=== PATIENT | male | born 1985 | race Caucasian/White ===

== ENCOUNTER 2017-06-05 20:56 | Inpatient (IN) | payer BC, MEDICAID ==
[~2017-06-05] VITALS: Ht 177.8 cm; Wt 94.0 kg
[~2017-06-05 20:56] MED LIST: CEPH-582 PO; SULF1TAB42 PO
[2017-06-05 23:00] LABS: BASOPHILS % (AUTO) 0.4 % (0.0-2.0); EOSINOPHILS % (AUTO) 4.5 % (1.0-6.0); HEMATOCRIT 41.9 % (41-53); HEMOGLOBIN 14.3 g/dL (13.5-17.5); LYMPHOCYTES # (AUTO) 2.3 K/uL (1.0-4.8); LYMPHOCYTES % (AUTO) 29.3 % (22.0-44.0); MEAN CORPUSCULAR HEMOGLOBIN 30.4 pg (26.0-34.0); MEAN CORPUSCULAR HGB CONC 34.1 G/dL (31.0-37.0); MEAN CORPUSCULAR VOLUME 89 fL (80-100); MONOCYTES # (AUTO) 0.6 K/uL (0.1-1.0); MONOCYTES % (AUTO) 7.8 % (2.0-9.0); NEUTROPHILS # (AUTO) 4.6 K/uL (1.8-7.7); PLATELET COUNT (AUTO) 321 K/uL (150-450); RED CELL DISTRIBUTION WIDTH 13.6 % (11.5-14.5)
[2017-06-05 23:09] LABS: AMPHET/METH SCREEN,URINE NEGATIVE (NEGATIVE); BARBITURATE SCREEN, URINE NEGATIVE (NEGATIVE); BENZODIAZEPINES SCREEN,URINE NEGATIVE (NEGATIVE); CANNABINOID SCREEN,URINE NEGATIVE (NEGATIVE); COCAINE SCREEN,URINE NEGATIVE (NEGATIVE); METHADONE SCREEN, URINE NEGATIVE (NEGATIVE); OPIATE SCREEN,URINE NEGATIVE (NEGATIVE)
[2017-06-05 23:10] LABS: PHENCYCLIDINE SCREEN,URINE NEGATIVE (NEGATIVE)
[2017-06-05 23:11] LABS: ANION GAP 5 mmol/L (8-16); CALCIUM, TOTAL 8.8 mg/dL (8.8-10.5); CARBON DIOXIDE 30 mmol/L (22-29); CHLORIDE 106 mmol/L (98-107); CREATININE 0.72 mg/dL (0.60-1.30); GLOMERULAR FILTR. RATE CALC > 60 mL/min (>60); GLUCOSE,RANDOM 97 mg/dL (70-110); POTASSIUM 3.8 mmol/L (3.5-5.1); SODIUM SERUM 141 mmol/L (136-145); UREA NITROGEN, BLOOD 10 mg/dL (7-18)
[2017-06-05 23:18] LABS: ALANINE AMINOTRANSFERASE 170 U/L (12-78); ALBUMIN 3.5 g/dL (3.4-5.0); ALKALINE PHOSPHATASE 58 U/L (46-116); ASPARTATE AMINOTRANSFERASE 188 U/L (15-37); BILIRUBIN,TOTAL 0.3 mg/dL (0.1-1.0); TOTAL PROTEIN, SERUM 6.9 g/dL (6.4-8.2)
[2017-06-06] MEDS ORDERED: ZOLPIDEM TARTRATE 10 MG TABLET PO PRN (00:15)
[2017-06-06 03:18] LABS: APPEARANCE,URINE CLOUDY (CLEAR); BILIRUBIN,URINE NEGATIVE (NEGATIVE); GLUCOSE, URINE (UA) NEGATIVE (NEGATIVE); KETONES,URINE NEGATIVE (NEGATIVE); LEUKOCYTE ESTERASE ,URINE NEGATIVE (NEGATIVE); NITRATE,URINE NEGATIVE (NEGATIVE); OCCULT BLOOD,URINE NEGATIVE (NEGATIVE); PROTEIN,URINE NEGATIVE (NEGATIVE)
[2017-06-06 11:14] VITALS: BP 112/66
[2017-06-06] MEDS ORDERED: PNEUMOCOCCAL VACCINE POLYVALENT 0.5 ML VIAL [PPSV23] IM ONE (13:15)
[2017-06-06 21:18] VITALS: BP 125/80
[2017-06-07 07:13] LABS: CHOL/HDL RATIO 3.2 (4.2-7.3)
[2017-06-07] MEDS: HALOPERIDOL 5 MG TABLET PO PRN (09:23)
[2017-06-07 13:15] VITALS: BP 111/72
[2017-06-07] MEDS ORDERED: MAG HYDROX/AL HYDROX/SIMETH 30 ML SUSP UDCUP PO PRN (14:30)
[2017-06-07 17:00] VITALS: BP 121/63
[2017-06-07] MEDS: ARIPiprazole 15 MG TABLET PO SCH (20:45)
[2017-06-08 06:38] VITALS: BP 110/64
[2017-06-08 07:15] LABS: ALANINE AMINOTRANSFERASE 117 U/L (12-78); ALBUMIN 3.5 g/dL (3.4-5.0); ALKALINE PHOSPHATASE 48 U/L (46-116); ANION GAP 6 mmol/L (8-16); ASPARTATE AMINOTRANSFERASE 55 U/L (15-37); BILIRUBIN,TOTAL 0.3 mg/dL (0.1-1.0); CALCIUM, TOTAL 9.1 mg/dL (8.8-10.5); CARBON DIOXIDE 33 mmol/L (22-29); CHLORIDE 104 mmol/L (98-107); CREATININE 0.77 mg/dL (0.60-1.30); GLOMERULAR FILTR. RATE CALC > 60 mL/min (>60); GLUCOSE,RANDOM 86 mg/dL (70-110); POTASSIUM 4.2 mmol/L (3.5-5.1); SODIUM SERUM 143 mmol/L (136-145); TOTAL PROTEIN, SERUM 6.8 g/dL (6.4-8.2); UREA NITROGEN, BLOOD 10 mg/dL (7-18)
[2017-06-08] MEDS: LITHIUM CARBONATE 300 MG CAPSULE PO SCH ×2 (08:12→16:01)
[2017-06-08] MEDS: BENZTROPINE MESYLATE 1 MG TABLET PO SCH ×2 (08:12→16:01)
[2017-06-08 08:48] VITALS: BP 108/81
[2017-06-08 09:12] LABS: FOLATE SERUM 14.7 ng/mL (5.4-)
[2017-06-08] MEDS ORDERED: MAGNESIUM HYDROXIDE SUSPENSION 30 ML UDCUP PO PRN (10:45)
[2017-06-08] MEDS: DOCUSATE SODIUM 250 MG CAPSULE PO SCH (16:01)
[2017-06-08] MEDS: HALOPERIDOL 5 MG TABLET PO PRN (17:12)
[2017-06-08 19:27] VITALS: BP 128/71
[2017-06-08] MEDS: ARIPiprazole 15 MG TABLET PO SCH (20:08)
[2017-06-09 04:41] VITALS: BP 148/77
[2017-06-09 08:00] VITALS: BP 123/75
[2017-06-09] MEDS: DOCUSATE SODIUM 250 MG CAPSULE PO SCH ×2 (08:04→17:00)
[2017-06-09] MEDS: LITHIUM CARBONATE 300 MG CAPSULE PO SCH ×2 (08:04→17:00)
[2017-06-09] MEDS: BENZTROPINE MESYLATE 1 MG TABLET PO SCH ×2 (08:04→17:00)
[2017-06-09 17:22] VITALS: BP 98/64
[2017-06-09] MEDS: ARIPiprazole 15 MG TABLET PO SCH (20:03)
[2017-06-09] MEDS: HALOPERIDOL 5 MG TABLET PO PRN (22:53)
[2017-06-09] MEDS: LORazepam 2 MG TABLET PO PRN (22:55)
[2017-06-10 04:38] VITALS: BP 142/74
[2017-06-10] MEDS: BENZTROPINE MESYLATE 1 MG TABLET PO SCH ×2 (08:12→16:07)
[2017-06-10] MEDS: DOCUSATE SODIUM 250 MG CAPSULE PO SCH ×2 (08:12→16:08)
[2017-06-10] MEDS: LITHIUM CARBONATE 300 MG CAPSULE PO SCH ×3 (08:14→16:08)
[2017-06-10] MEDS: NICOTINE 21 MG/24 HOUR PATCH TD SCH (11:33)
[2017-06-10] MEDS: LORazepam 2 MG TABLET PO PRN (12:30)
[2017-06-10 16:36] VITALS: BP 102/67
[2017-06-10] MEDS: ARIPiprazole 15 MG TABLET PO SCH (20:16)
[2017-06-11 06:44] VITALS: BP 106/77
[2017-06-11] MEDS: NICOTINE 21 MG/24 HOUR PATCH TD SCH (08:07)
[2017-06-11] MEDS: BENZTROPINE MESYLATE 1 MG TABLET PO SCH (08:08)
[2017-06-11] MEDS: DOCUSATE SODIUM 250 MG CAPSULE PO SCH (08:08)
[2017-06-11] MEDS: LITHIUM CARBONATE 300 MG CAPSULE PO SCH (08:08)
[2017-06-11 09:37] VITALS: BP 143/88
[2017-06-11] MEDS ORDERED: BENZ1TAB10 PO (09:47)
[2017-06-11] MEDS ORDERED: ARIP15TA2 PO (09:47)
[2017-06-11] MEDS ORDERED: LITH300C3 PO (09:48)
== END 2017-06-11 12:00 | disposition home or self-care (01) | DRG 885 ==
LOC: EMS 20:58 → AHU 06-06 10:59 → 3EX 06-06 20:22
PROVIDERS: ADMIT Psychiatry & Neurology Psychiatry; ATTEND Psychiatry & Neurology Psychiatry
PROC: 3E0234Z Introduction of Serum, Toxoid and Vaccine into Muscle, Percutaneous Approach (ICD-10-PCS; principal; 2017-06-06)
DX: F25.9 Schizoaffective disorder, unspecified (principal); E86.0 Dehydration; R45.851 Suicidal ideations; L03.90 Cellulitis, unspecified; F32.9 Major depressive disorder, single episode, unspecified; F15.10 Other stimulant abuse, uncomplicated; F17.210 Nicotine dependence, cigarettes, uncomplicated; Z87.820 Personal history of traumatic brain injury; Z79.899 Other long term (current) drug therapy; Z23 Encounter for immunization
CPT/HCPCS: 80074; 82306; 82607; 82746; 87081; 99285; G0480